=== PATIENT | male | born 2000 | race African-American/Black ===

== ENCOUNTER 2021-01-08 02:27 | Emergency (ER) | payer SELFPAY | END 2021-01-08 04:50 | disposition home or self-care (01) | LOC: ERS 02:27 | DX: S82.841A Displaced bimalleolar fracture of right lower leg, initial encounter for closed fracture (principal); S82.831A Other fracture of upper and lower end of right fibula, initial encounter for closed fracture; W10.1XXA Fall (on)(from) sidewalk curb, initial encounter | CPT/HCPCS: 29515 ==